=== PATIENT | female | born 1985 | race Caucasian/White ===

== ENCOUNTER 2022-03-17 07:51 | Outpatient (CLI) | payer BC, OTHER | END 2022-03-17 07:52 | disposition home or self-care (01) | LOC: SCSMRI 07:51 | PROVIDERS: ATTEND Internal Medicine Hematology & Oncology | DX: D72.829 Elevated white blood cell count, unspecified (principal); R93.89 Abnormal findings on diagnostic imaging of other specified body structures; K76.89 Other specified diseases of liver | CPT/HCPCS: 74183 ==